=== PATIENT | male | born 1990 | race Caucasian/White ===

== ENCOUNTER 2017-11-03 12:20 | Emergency (ER) | payer OTHER, SELFPAY ==
--- NOTE | 2017-11-03 12:30 | ED.MALEGU ---
HPI - Male Genitourinary General Chief complaint: Urogenital-Male Stated complaint: VESECTOMY THIS MORNING, EXTREME SWELLING OF TESTIC Time Seen by Provider: 11/03/17 12:29 Source: patient Mode of arrival: wheelchair Limitations: no limitations History of Present Illness HPI Narrative: Patient is a 27-year-old male who presents with scrotal swelling and pain. He a had a vasectomy and was released at 10:00 a.m.. Apparently there was some bleeding at the bleeding was thought to be controlled with a clip. However he has had rapid expanding of his scrotum and increased pain stents. They called urology office multiple times and sent to the ED. states that he briefly passed out in the car as well. MD Complaint: testicle pain and testicle swelling Onset (ago): hour(s) Review of Systems Constitutional Denies chills, Denies fever(s), Denies lethargy and Denies weakness ENT Ears, Nose, Mouth, and Throat: Denies change in voice, Denies neck pain and Denies sore throat Cardiovascular Denies chest pain, Reports syncope, Reports lightheadedness, Denies dyspnea and Denies dyspnea on exertion Respiratory Denies cough, Denies dyspnea, Denies dyspnea on exertion and Denies wheezing Genitourinary Reports as per HPI, Reports scrotal swelling and Reports testicular pain Musculoskeletal Denies neck pain Neurologic Reports syncope and Denies weakness Allergic/Immunologic Denies wheezing Exam Initial Vital Signs Initial Vital Signs: Vital Signs Pulse Rate 88 11/03/17 12:36 Respiratory Rate 26 H 11/03/17 12:36 Blood Pressure 110/68 11/03/17 12:36 Pulse Oximetry 100 11/03/17 12:36 GENERAL: Young male appears in pain awake alert and oriented x3 HEENT: Head atraumatic,EOMI, pupils reactive CARDIOVASCULAR: Regular rate and rhythm without murmurs, rubs or gallops. RESPIRATORY: Breath sounds equal bilaterally, no wheezes rales or rhonchi. ABDOMEN: Soft, nontender. Normoactive bowel sounds all 4 quadrants. No guarding or rebound. : Significantly large scrotum extremely tender to touch some oozing at incision site, penis is within normal limits no blood at meatus EXTREMITIES: Normal range of motion, no clubbing or edema. Neurovascularly intact NEUROLOGICAL: Alert and oriented x4.Normal gait and speech. Cranial nerves II through XII grossly intact. SKIN: Warm, dry, no laceration, no petechiae, no rashes or lesions. Course Orders Ordered: ED Orders 11/03/17 12:32 US scrotum Stat Complete Blood Count AUTO DIFF Stat Comprehensive Metabolic Panel Stat Discontinued Medications Hydromorphone HCl (Dilaudid) 1 mg IV NOW ONE Stop: 11/03/17 12:33 Last Admin: 11/03/17 12:35 Dose: 1 mg Hydromorphone HCl (Dilaudid) 0.5 mg IV NOW ONE Stop: 11/03/17 13:30 Sodium Chloride (Normal Saline 0.9%) 1,000 mls @ 1,000 mls/hr IV BOLUS ONE Stop: 11/03/17 13:31 Last Admin: 11/03/17 12:34 Dose: 1,000 mls/hr Ondansetron HCl (Zofran) 4 mg IV NOW ONE Stop: 11/03/17 12:36 Last Admin: 11/03/17 12:37 Dose: 4 mg Consultations Consultation #1: Dr. Clements, is aware of the patient. Patient was actually supposed to go straight [facility]. He is expecting the patient is expecting to taken back to the OR for hematoma evacuation. Time: 13:11 Consultation #2: and when ED physician at [facility] happily accepts Vital Signs - 8 hr 11/03/17 12:36 11/03/17 13:47 Pulse Rate 88 67 Respiratory Rate 26 H 21 Blood Pressure 110/68 Blood Pressure [Right Arm] 124/66 H Pulse Oximetry 100 100 MDM - Male Genitourinary Lab Data labs PENDING Imaging Data us SCROTAL: Radiologist's impression: PROCEDURE: US SCROTUM INDICATIONS: BLEEDING, EDEMA POST VASECTOMY TECHNIQUE: Real-time scanning was performed of the scrotum and testicles, with image documentation. Color and pulse Doppler interrogation was performed of both testicles. COMPARISON: None. FINDINGS: Right: Testicle is normal in size at 2.1 x 3.6 x 4.2 cm, and homogenous in echotexture. Epididymis is normal in overall size and morphology. No hydrocele or varicoceles. Overlying scrotal skin is normal in thickness. Posterior to the testicle is a large hematoma, discussed below. Left: Testicle is normal in size at 2.0 x 3.9 x 4.9 cm, and homogeneous in echotexture. Epididymis is normal in overall size and morphology. No hydrocele or varicoceles. Overlying scrotal skin is normal in thickness. The large hematoma present is posterior to the testicles bilaterally and appears acute or subacute. This procedure is performed approximately 4 hours after mastectomy. The testicles are displaced anteriorly by the large hematoma, but maintain their internal blood flow at this time. Doppler: Color and pulse Doppler demonstrate normal and symmetric arterial flow in both testicles. IMPRESSION: Very large posterior hematoma measuring up to 9.2 x 8.7 x 10.8 cm behind the right and left testis, which has developed within 4 hours after vasectomy. The testicles bilaterally are free of ischemic injury and show normal blood flow. The emergency room physician was immediately notified of these findings. Dictated by: Silviano Patrick M.D. on 11/03/2017 at 14:05 MDM Narrative Medical decision making narrative: Patient has remained hemodynamically stable in the ED. We discussed ambulance ride versus private auto. Ambulance would be an hour wait in the emergency department and an hour and half before he was at [facility]. The option of a private auto with much quicker. Patient and spouse discussed these options. I feel that he is hemodynamically stable and appropriate for private auto transportation as opposed to ALS transport. Patient was given pain medication and IV left in place. I discussed all findings with the patient and spouse. Education has been performed regarding treatment plan, diagnosis, warning signs and symptoms and all concerns have been addressed. Verbally agree with and understood all of the above. Discharge Plan Departure Patient Disposition: [facility] Clinical Impression: Scrotal hematoma Activity Restrictions/Additional Instructions: GO DIRECTLY TO [facility] THEY ARE EXPECTING YOU, DR. CLEMENTS IS EXPECTING Referrals: Bob Clements MD [Physician] -
[2017-11-03] MEDS: SODIUM CHLORIDE 0.9% 1,000 ML 1000 ML IV (12:34)
[2017-11-03] MEDS: HYDROMORPHONE 2 MG INJ 1 MG IV (12:35)
[2017-11-03 12:36] VITALS: BP 110/68; PULSE 88; RESP 26; O2SAT 100
[2017-11-03] MEDS: ONDANSETRON 4 MG/2 ML INJ IV (12:37)
--- NOTE | 2017-11-03 13:08 | ED_ITS ---
HPI - Male Genitourinary General Chief complaint: Urogenital-Male Stated complaint: VESECTOMY THIS MORNING, EXTREME SWELLING OF TESTIC Time Seen by Provider: 11/03/17 12:29 Source: patient Mode of arrival: wheelchair Limitations: no limitations History of Present Illness HPI Narrative: Patient is a 27-year-old male who presents with scrotal swelling and pain. He a had a vasectomy and was released at 10:00 a.m.. Apparently there was some bleeding at the bleeding was thought to be controlled with a clip. However he has had rapid expanding of his scrotum and increased pain stents. They called urology office multiple times and sent to the ED. states that he briefly passed out in the car as well. MD Complaint: testicle pain and testicle swelling Onset (ago): hour(s) Review of Systems Constitutional Denies chills, Denies fever(s), Denies lethargy and Denies weakness ENT Ears, Nose, Mouth, and Throat: Denies change in voice, Denies neck pain and Denies sore throat Cardiovascular Denies chest pain, Reports syncope, Reports lightheadedness, Denies dyspnea and Denies dyspnea on exertion Respiratory Denies cough, Denies dyspnea, Denies dyspnea on exertion and Denies wheezing Genitourinary Reports as per HPI, Reports scrotal swelling and Reports testicular pain Musculoskeletal Denies neck pain Neurologic Reports syncope and Denies weakness Allergic/Immunologic Denies wheezing Exam Initial Vital Signs Initial Vital Signs: Vital Signs Pulse Rate 88 11/03/17 12:36 Respiratory Rate 26 H 11/03/17 12:36 Blood Pressure 110/68 11/03/17 12:36 Pulse Oximetry 100 11/03/17 12:36 GENERAL: Young male appears in pain awake alert and oriented x3 HEENT: Head atraumatic,EOMI, pupils reactive CARDIOVASCULAR: Regular rate and rhythm without murmurs, rubs or gallops. RESPIRATORY: Breath sounds equal bilaterally, no wheezes rales or rhonchi. ABDOMEN: Soft, nontender. Normoactive bowel sounds all 4 quadrants. No guarding or rebound. : Significantly large scrotum extremely tender to touch some oozing at incision site, penis is within normal limits no blood at meatus EXTREMITIES: Normal range of motion, no clubbing or edema. Neurovascularly intact NEUROLOGICAL: Alert and oriented x4.Normal gait and speech. Cranial nerves II through XII grossly intact. SKIN: Warm, dry, no laceration, no petechiae, no rashes or lesions. Course Orders Ordered: ED Orders 11/03/17 12:32 US scrotum Stat Complete Blood Count AUTO DIFF Stat Comprehensive Metabolic Panel Stat Discontinued Medications Hydromorphone HCl (Dilaudid) 1 mg IV NOW ONE Stop: 11/03/17 12:33 Last Admin: 11/03/17 12:35 Dose: 1 mg Hydromorphone HCl (Dilaudid) 0.5 mg IV NOW ONE Stop: 11/03/17 13:30 Sodium Chloride (Normal Saline 0.9%) 1,000 mls @ 1,000 mls/hr IV BOLUS ONE Stop: 11/03/17 13:31 Last Admin: 11/03/17 12:34 Dose: 1,000 mls/hr Ondansetron HCl (Zofran) 4 mg IV NOW ONE Stop: 11/03/17 12:36 Last Admin: 11/03/17 12:37 Dose: 4 mg Consultations Consultation #1: Dr. Clements, is aware of the patient. Patient was actually supposed to go straight . He is expecting the patient is expecting to taken back to the OR for hematoma evacuation. Time: 13:11 Consultation #2: and when ED physician at happily accepts Vital Signs - 8 hr 11/03/17 12:36 11/03/17 13:47 Pulse Rate 88 67 Respiratory Rate 26 H 21 Blood Pressure 110/68 Blood Pressure [Right Arm] 124/66 H Pulse Oximetry 100 100 MDM - Male Genitourinary Lab Data labs PENDING Imaging Data us SCROTAL: Radiologist's impression: PROCEDURE: US SCROTUM INDICATIONS: BLEEDING, EDEMA POST VASECTOMY TECHNIQUE: Real-time scanning was performed of the scrotum and testicles, with image documentation. Color and pulse Doppler interrogation was performed of both testicles. COMPARISON: None. FINDINGS: Right: Testicle is normal in size at 2.1 x 3.6 x 4.2 cm, and homogenous in echotexture. Epididymis is normal in overall size and morphology. No hydrocele or varicoceles. Overlying scrotal skin is normal in thickness. Posterior to the testicle is a large hematoma, discussed below. Left: Testicle is normal in size at 2.0 x 3.9 x 4.9 cm, and homogeneous in echotexture. Epididymis is normal in overall size and morphology. No hydrocele or varicoceles. Overlying scrotal skin is normal in thickness. The large hematoma present is posterior to the testicles bilaterally and appears acute or subacute. This procedure is performed approximately 4 hours after mastectomy. The testicles are displaced anteriorly by the large hematoma, but maintain their internal blood flow at this time. Doppler: Color and pulse Doppler demonstrate normal and symmetric arterial flow in both testicles. IMPRESSION: Very large posterior hematoma measuring up to 9.2 x 8.7 x 10.8 cm behind the right and left testis, which has developed within 4 hours after vasectomy. The testicles bilaterally are free of ischemic injury and show normal blood flow. The emergency room physician was immediately notified of these findings. Dictated by: Silviano Patrick M.D. on 11/03/2017 at 14:05 MDM Narrative Medical decision making narrative: Patient has remained hemodynamically stable in the ED. We discussed ambulance ride versus private auto. Ambulance would be an hour wait in the emergency department and an hour and half before he was at . The option of a private auto with much quicker. Patient and spouse discussed these options. I feel that he is hemodynamically stable and appropriate for private auto transportation as opposed to ALS transport. Patient was given pain medication and IV left in place. I discussed all findings with the patient and spouse. Education has been performed regarding treatment plan, diagnosis, warning signs and symptoms and all concerns have been addressed. Verbally agree with and understood all of the above. Discharge Plan Departure Patient Disposition: [facility] Clinical Impression: Scrotal hematoma Activity Restrictions/Additional Instructions: GO DIRECTLY TO [facility] THEY ARE EXPECTING YOU, DR. CLEMENTS IS EXPECTING Referrals: Bob Clements MD [Physician] -
[2017-11-03] MEDS: HYDROMORPHONE 1 MG INJ 0.5 MG IV (13:15)
[2017-11-03 13:47] VITALS: BP 124/66; PULSE 67; RESP 21; O2SAT 100
== END 2017-11-03 14:48 | disposition short-term general hospital (02) ==
PROVIDERS: Emergency Provider Emergency Medicine
DX: S30.22XA Contusion of scrotum and testes, initial encounter (principal); Z98.890 Other specified postprocedural states
CPT/HCPCS: 36591; 76870; 96361; 96374; 96375; 96376; 99281; 99284; J1170; J2405